=== PATIENT | female | born 1980 | race Caucasian/White ===

== ENCOUNTER → 2016-06-23 | Outpatient (CLI) | payer SELFPAY ==
--- OUTSIDE RECORDS SUMMARY | 2016-06-23 16:13 | XMS REPORT ---
Author Author ZEINA RUBIO Organization [employer] Address Unknown Phone Unavailable Care Team Providers Care Stock Turner Name Role Phone ZEINA RUBIO CP Unavailable Allergies No Known Allergies Problems Problem Type Condition Code Onset Dates Condition Status Problem Pain in soft tissues of limb M79.609 Active Problem Abnormal weight gain R63.5 Active Problem Obesity E66.9 Active Assessment Encounter for immunization Z23 Active Problem Health examination in population survey Z00.8 Active Problem Irregular menses N92.6 Active Problem Desire for Z31.9 Active Problem Heavy menstrual bleeding N92.0 Active Problem Malaise R53.81 Active Problem Other fatigue R53.83 Active 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
--- NOTE | 2016-06-23 16:51 | Diagnostic Imaging Report ---
US NON OB PELVIS COMP/TRANSVAG INDICATION: Heavy menstrual bleeding, dysmenorrhea. TECHNIQUE: Transabdominal and transvaginal grayscale, color Doppler and pulse duplex imaging of the pelvis was performed. FINDINGS: The uterus measures 8.3 x 5.1 x 6.0 cm. The myometrium is normal in echogenicity without discrete mass. The endometrium measures up to 1.1 cm where visualized, and has a normal trilaminar appearance, compatible with late proliferative phase of the menstrual cycle. The right ovary measures 2.5 x 1.6 x 1.8 cm. The left ovary measures 2.9 x 2.7 x 1.9 cm. Both ovaries have physiologic in appearance, with a dominant follicle in the left ovary measuring 2.2 x 1.5 x 1.9 cm. Blood flow is seen in both ovaries by color Doppler and spectral duplex imaging. No suspicious adnexal mass or fluid collection. No free pelvic fluid. IMPRESSION: Normal pelvic ultrasound. Endometrium measures up to 1.1 cm in thickness and has a normal appearance for the late proliferative phase of menstrual cycle. Dictated by: Dictated on workstation # [id number]
== END ==
LOC: RAD 16:10
PROVIDERS: ATTEND Nurse Practitioner Family
DX: N94.6 Dysmenorrhea, unspecified (principal)
CPT/HCPCS: 76830; 76856

== ENCOUNTER 2018-10-07 14:48 | Emergency (ER) | payer MEDICAID, OTHER ==
[~2018-10-07] VITALS: Ht 162.6 cm; Wt 108.0 kg
[2018-10-07] MEDS ORDERED: NS IV 1000 ML 1,000 ML IV STA (15:25)
[2018-10-07] MEDS ORDERED: DIAZEPAM INJ 10 MG/2 ML (VALIUM) SYR IV STA (15:25)
[2018-10-07] MEDS ORDERED: IOHEXOL 350 MG/ML 100 ML (OMNIPAQUE 350) VIAL IV ONE (15:30)
[2018-10-07] MEDS ORDERED: HOLD METFORMIN - RECEIVED CONTRAST 20 ML VIAL IV SCH (15:30)
--- NOTE | 2018-10-07 15:35 | ED General ---
General Chief Complaint: Dizziness/Syncope Stated Complaint: FALL/ NAUSEA VOMITING Nursing Triage Note: Was jumping on trampoline and fell backwards onto trampoline. Afterwards started feeling dizzy, nauseous, and shaky. Vomited x2. Denies hitting head or losing consciousness. Nursing Sepsis Screen: No Definite Risk (SHILA OLSON DO) History of Present Illness Date Seen by Provider: Oct 07, 2018 Time Seen by Provider: 15:10 This is a 37-year-old female who complains of sensation of spinning, nausea, vomiting after a mechanical fall on a trampoline about an hour ago. She was jumping on the trampoline and felt fine, she fell backwards onto the trampoline , she does not think she her head or neck or anything else. She feels that the spinning sensation is worse when she turns her head to the right side. No visual change, focal weakness, numbness, or tingling, or hearing loss. No chest pain or shortness of breath. (SHILA OLSON DO) Allergies and Home Medications Allergies Coded Allergies: No Known Drug Allergies (Unverified , 10/07/18) Patient Home Medication List Home Medication List Reviewed: Yes (SHILA OLSON DO) Review of Systems Review of Systems Constitutional: no symptoms reported EENTM: no symptoms reported Respiratory: no symptoms reported Cardiovascular: no symptoms reported Gastrointestinal: see HPI Genitourinary: no symptoms reported Musculoskeletal: no symptoms reported Skin: no symptoms reported Psychiatric/Neurological: See HPI Hematologic/Lymphatic: No Symptoms Reported Immunological/Allergic: no symptoms reported (SHILA OLSON DO) Past Bserroy-Gofvxz-Hjuyfr Hx Past Med/Social Hx: Reviewed Nursing Past Med/Soc Hx (SHILA OLSON DO) Patient Social History Alcohol Use: Denies Use Recreational Drug Use: No Smoking Status: Never a Smoker 2nd Hand Smoke Exposure: No Recent Foreign Travel: No Contact w/Someone Who Travel: No Recent Infectious Disease Expo: No Recent Hopitalizations: No Physical Abuse: No Sexual Abuse: No Mistreated: No Fear: No (SHILA OLSON DO) Seasonal Allergies Seasonal Allergies: No (SHILA OLSON DO) Past Medical History Surgeries: Yes Section, Hysterectomy Respiratory: No Cardiac: No Neurological: No Genitourinary: No Gastrointestinal: No Musculoskeletal: No Endocrine: No HEENT: No Cancer: No Psychosocial: No Integumentary: No (SHILA OLSON DO) Physical Exam Vital Signs Vital Signs - First Documented 10/07/18 14:55 Temp 96.9 Pulse 86 B/P (MAP) 124/70 (88) Pulse Ox 97 (KATE JORDAN MD) Vital Signs Capillary Refill : Less Than 3 Seconds (SHILA OLSON DO) Height, Weight, BMI Height: 5'4.00" Weight: 238lbs. oz. 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 Question subtle rotatory nystagmus with eyes turned to the right. No vertical nystagmus. On Anya-Hallpike testing patient is mildly to moderately symptomatic with the head turned to the right, not symptomatic with the head turned to the left.) Skin: Warm/Dry (SHILA OLSON DO) Progress/Results/Core Measures Suspected Sepsis Recent Fever Within 48 Hours: No Infection Criteria Present: None New/Unexplained Altered Menta: No Sepsis Screen: No Definite Risk SIRS Temperature:96.9 Pulse: 86 Respiratory Rate: Laboratory Tests 10/07/18 15:45: White Blood Count 11.4H Blood Pressure 124 /70 Mean: 88 Laboratory Tests 10/07/18 15:45: Creatinine 0.61, Platelet Count 268 (SHILA OLSON DO) Results/Orders Lab Results Laboratory Tests Test 10/07/18 15:45 Range/Units White Blood Count 11.4 H 4.3-11.0 10^3/uL Red Blood Count 4.71 4.35-5.85 10^6/uL Hemoglobin 13.5 11.5-16.0 G/DL Hematocrit 41 35-52 % Mean Corpuscular Volume 87 80-99 FL Mean Corpuscular Hemoglobin 29 25-34 PG Mean Corpuscular Hemoglobin Concent 33 32-36 G/DL Red Cell Distribution Width 14.2 10.0-14.5 % Platelet Count 268 130-400 10^3/uL Mean Platelet Volume 10.4 7.4-10.4 FL Sodium Level 137 135-145 MMOL/L Potassium Level 4.1 3.6-5.0 MMOL/L Chloride Level 99 98-107 MMOL/L Carbon Dioxide Level 17 L 21-32 MMOL/L Anion Gap 21 H 5-14 MMOL/L Blood Urea Nitrogen 11 7-18 MG/DL Creatinine 0.61 0.60-1.30 MG/DL Estimat Glomerular Filtration Rate > 60 BUN/Creatinine Ratio 18 Glucose Level 102 70-105 MG/DL Calcium Level 9.8 8.5-10.1 MG/DL Serum Test, Qualitative NEGATIVE NEGATIVE (KATE JORDAN MD) My Orders Orders - KATE JORDAN MD Ct Angio Neck W (10/07/18 ) (KATE JORDAN MD) Medications Given in ED Current Medications Medications Dose Ordered Sig/Nita Route Start Time Stop Time Status Last Admin Dose Admin Iohexol 75 ml ONCE ONCE IV 10/07/18 15:30 10/07/18 15:31 DC 10/07/18 16:39 75 ML Ondansetron HCl 8 mg ONCE ONCE IVP 10/07/18 15:30 10/07/18 15:31 DC 10/07/18 16:01 4 MG (KATE JORDAN MD) Vital Signs/I&O 10/07/18 14:55 Temp 96.9 Pulse 86 B/P (MAP) 124/70 (88) Pulse Ox 97 (KATE JORDAN MD) Vital Signs/I&O Capillary Refill : Less Than 3 Seconds (SHILA OLSON DO) Blood Pressure Mean: 88 Progress Note #1: Progress Note This is a 37-year-old female who fell backwards on a trampoline and has been having vertiginous symptoms since then, worse when turning to the right. She does not have a headache or neck pain, she has an objectively normal neurologic exam with equivocal results on Anya-Hallpike testing with the head turned to the right. A vertebral artery dissection seems somewhat unlikely but in the setting of the fall I feel it is reasonable to rule this out with a CT angiogram. Patient is in agreement. We'll also screen with an ECG, basic labs, hCG. We will treat with diazepam, Zofran, fluids. We will reassess. Progress Note #2: Progress Note Repeat CTA pending at shift change. Plan to dc home w meclizine and zofran if no dissection or other acute issue. (SHILA OLSON DO) Progress Note : Time: 18:00 Progress Note I assumed care of the patient at 1800. I discussed the situation with Dr. Olson and with the patient and her . She is feeling better. Awaiting repeat angiography studies CT study. Patient understands and agrees with plan. 1914 CT angiography reveals no evidence of dissection in either the neck or head. Discussed with patient and her . We'll treat symptomatically with meclizine and Zofran per Dr. Olson's plan (KATE JORDAN MD) Diagnostic Imaging Diagonstic Imaging: CT Plain Films/CT/US/NM/MRI: head, other (neck) Comments CT angiogram of the head and neck reveal no evidence of dissection or other abnormality. Per radiology report. (KATE JORDAN MD) Departure Impression Primary Impression: Vertigo Additional Impressions: Fall Qualified Codes: W19.XXXA - Unspecified fall, initial encounter Vomiting Qualified Codes: R11.2 - Nausea with vomiting, unspecified Disposition: 01 HOME, SELF-CARE Condition: Improved Departure-Patient Inst. Decision time for Depature: 19:22 (KATE JORDAN MD) Referrals: FAISAL DUTTON MD (PCP/Family) Primary Care Physician 2-3 days, sooner as needed Patient Instructions: Vertigo (a Type of Dizziness) (DC), Nausea and Vomiting, Adult (DC) Scripts Ondansetron (Ondansetron Odt) 4 Mg Tab.rapdis 4 MG PO Q6H PRN for NAUSEA/VOMITING-1ST LINE, #10 TAB Prov: KATE JORDAN MD 10/07/18 Meclizine HCl (Meclizine HCl) 25 Mg Tablet 25 MG PO QID PRN for DIZZINESS, #10 TAB Prov: KATE JORDAN MD 10/07/18 SHILA OLSON DO Oct 07, 2018 15:35 KATE JORDAN MD Oct 07, 2018 19:22
[2018-10-07] MEDS ORDERED: LORazepam INJ 2 MG/ML (ATIVAN) VIAL ONE (15:56)
[2018-10-07] MEDS ORDERED: LORazepam INJ 2 MG/ML (ATIVAN) VIAL IVP STA (15:56)
[2018-10-07] MEDS: ONDANSETRON 4 MG/2 ML (SDV) Z0FRAN IVP ONE (16:01)
[2018-10-07 16:07] LABS: HEMOGLOBIN 13.5 G/DL (11.5-16.0); MEAN PLATELET VOLUME 10.4 FL (7.4-10.4); RED CELL DISTRIBUTION WIDTH 14.2 % (10.0-14.5); WHITE BLOOD COUNT 11.4 10^3/uL (4.3-11.0)
[2018-10-07 16:25] LABS: BUN/CREATININE RATIO 18; CALCIUM 9.8 MG/DL (8.5-10.1); CARBON DIOXIDE 17 MMOL/L (21-32); CHLORIDE 99 MMOL/L (98-107); CREATININE SERUM 0.61 MG/DL (0.60-1.30); GFR ESTIMATED > 60; GLUCOSE 102 MG/DL (70-105); POTASSIUM 4.1 MMOL/L (3.6-5.0); SODIUM 137 MMOL/L (135-145)
--- NOTE | 2018-10-07 17:04 | Diagnostic Imaging Report ---
PROCEDURE: CT angiography of the head and CT angiography of the neck with and without contrast. TECHNIQUE: Contiguous noncontrast images were obtained from the skull base through the vertex. After intravenous contrast administration, helical CT angiography of the neck was performed. Source data was reformatted into multiple MIP projections. Delayed post contrast acquisition was also obtained. Auto Exposure Controls were utilized during the CT exam to meet ALARA standards for radiation dose reduction. INDICATION: Dizziness. Fall on trampoline. COMPARISON: None. FINDINGS: Noncontrast head CT demonstrates no intracranial hemorrhage, mass effect, hydrocephalus or extra-axial fluid collections. No CT evidence of a territorial infarction. Osseous structures are intact. The visualized paranasal sinuses and mastoids are clear. CTA is markedly limited by contrast timing. No high-grade narrowing, aneurysm or dissection is seen involving the bilateral carotid circulations, middle cerebral, posterior cerebral or anterior cerebral arteries. The dural venous sinuses are grossly patent. The vertebral arteries are not well evaluated. 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 Mild degenerative endplate changes in the cervical spine. Vertebral body heights are preserved. No fractures. No evidence of high-grade spinal canal narrowing. The visualized paravertebral soft tissues are unremarkable. IMPRESSION: 1. No acute intracranial CT findings. No acute CT findings in the cervical spine. 2. CTA is limited by contrast timing. The vertebral arteries are not well evaluated. If there is concern for a vertebral artery injury, recommend repeat examination. Dictated by: Dictated on workstation # [id number]
--- NOTE | 2018-10-07 19:03 | Diagnostic Imaging Report ---
CTA neck: After intravenous administration of contrast, axial imaging was obtained through the neck and reformatted into coronal and sagittal planes. Findings: The CT angiogram portion of the neck was repeated. The head CT and post-contrast images of the head were not repeated. The CT angiogram demonstrates patent origins of the great vessels arising from the aortic arch. The common carotid arteries are unremarkable. There is no significant stenosis at the carotid bifurcations. The cervical segments of the internal carotid arteries demonstrate no caliber change to suggest stenosis or dissection. The origin of the right vertebral artery appears patent. This remains extravertebral until the level of the C3-4. It remains normal in caliber beyond this point. There is no caliber change to suggest dissection. The cervical segments of the dominant left vertebral artery are unremarkable. The intracranial portion of the right vertebral artery is patent. The left vertebral artery is also patent intracranially, and the basilar is unremarkable with patent superior cerebellar arteries. The right [employer]Y MANAGER appears patent. The left P1 segment is hypoplastic as there appears to be a origin of the left [employer] PARTY MANAGER. The visualized portion of the anterior intracranial circulation appears intact. The dural venous sinuses appear patent. IMPRESSION: 1. The repeated CTA of the neck demonstrates no CT angiographic evidence to suggest vertebral artery dissection or traumatic injury. The carotid system within the neck also appears intact and unremarkable. The visualized intracranial circulation appears intact. Dictated by: Dictated on workstation # [id number]
[2018-10-07] MEDS ORDERED: MECL-106 PO (19:25)
[2018-10-07] MEDS ORDERED: ONDA4TAB11 PO (19:25)
[2018-10-07] MEDS ORDERED: RX-ONDANSETRON 4 MG ODT (ZOFRAN) PPK #4 PO ONE (19:30)
[2018-10-07 19:41] VITALS: BP 122/80
== END 2018-10-07 19:41 | disposition home or self-care (01) ==
LOC: EDUNIT# 14:48 → ER FS 14:51
DX: R42 Dizziness and giddiness (principal); R11.2 Nausea with vomiting, unspecified; Z98.890 Other specified postprocedural states; Z90.710 Acquired absence of both cervix and uterus; W09.8XXA Fall on or from other playground equipment, initial encounter; Y93.44 Activity, trampolining
CPT/HCPCS: 36415; 70496; 70498; 80048; 84703; 85027; 93005

== ENCOUNTER → 2022-01-20 | Outpatient (CLI) | payer BC, MEDICAID ==
[~2022-01-20] MED LIST: MECL-149 PO; ONDA4TAB11 PO
--- NOTE | 2022-01-20 15:39 | Diagnostic Imaging Report ---
PROCEDURE: Pelvic comp/transvaginal sonogram. TECHNIQUE: Complete transabdominal and transvaginal pelvic ultrasound was performed. In addition, limited pelvic Doppler was performed. INDICATION: Lower abdominal pain. FINDINGS: The uterus is surgically absent. The right ovary measures 3.2 x 1.4 x 2.0 cm and the left ovary measures 2.9 x 1.7 x 1.5 cm. The ovaries show blood flow. No adnexal mass or free fluid is detected. IMPRESSION: Status post hysterectomy. The study is otherwise unremarkable. Dictated by: Dictated on workstation # [id number]
== END ==
LOC: RAD FS 13:55
PROVIDERS: ATTEND Obstetrics & Gynecology
DX: R10.30 Lower abdominal pain, unspecified (principal); Z90.710 Acquired absence of both cervix and uterus
CPT/HCPCS: 76830; 76856

== ENCOUNTER 2023-04-15 16:04 | Emergency (ER) | payer SELFPAY ==
[~2023-04-15] VITALS: Ht 162 cm; Wt 88.8 kg
[~2023-04-15 16:04] MED LIST changes: -MECL-149 PO; +MECL-291 PO
--- NOTE | 2023-04-15 16:15 | ED Abdominal Pain ---
General Stated Complaint: RT SIDE ABD PAIN History of Present Illness Date Seen by Provider: Apr 15, 2023 Time Seen by Provider: 16:13 Initial Comments 42-year-old female presents with right-sided abdominal pain this been going on for couple days. Patient reports she presented to urgent care and had a UA checked and had a little bit of blood reports nothing else however it was a dipped urine. Patient reports the pain gets worse with movement. She still has her appendix. She does have her gallbladder out and has had weight loss surgery 5 C-sections. Allergies and Home Medications Allergies Coded Allergies: No Known Drug Allergies (Unverified , 10/07/18) Patient Home Medication List Home Medication List Reviewed: Yes Meclizine HCl (Meclizine HCl) 25 Mg Tablet, 25 MG PO QID PRN for DIZZINESS Prescribed by: KATE JORDAN on 10/07/181924 Ondansetron (Ondansetron Odt) 4 Mg Tab.rapdis, 4 MG PO Q6H PRN for NAUSEA/VOMITING-1ST LINE Prescribed by: KATE JORDAN on 10/07/181924 Review of Systems Review of Systems Constitutional: No chills, No fever Gastrointestinal: Abdominal Pain; Denies Diarrhea, Denies Vomiting Genitourinary: No Symptoms Reported Musculoskeletal: no symptoms reported Skin: no symptoms reported Psychiatric/Neurological: No Symptoms Reported Endocrine: No Symptoms Reported Past Xmewalm-Udsqqv-Tcbaiv Hx Seasonal Allergies Seasonal Allergies: No Past Medical History Surgeries: Yes Section, Hysterectomy Respiratory: No Cardiac: No Neurological: No Genitourinary: No Gastrointestinal: No Musculoskeletal: No Endocrine: No HEENT: No Cancer: No Psychosocial: No Integumentary: No Physical Exam Vital Signs Vital Signs - First Documented 04/15/23 16:09 Temp 36.9 Pulse 87 Resp 18 B/P (MAP) 145/79 (101) Pulse Ox 100 O2 Delivery Room Air Capillary Refill : Height/Weight/BMI Height: 5'4.00" Weight: 238lbs. oz. 107.138112yu; BMI Method:Stated General Appearance: no apparent distress Respiratory: lungs clear, normal breath sounds Gastrointestinal: soft, tenderness (lower abd, greatest rlq) Extremities: normal range of motion, non-tender Neurologic/Psychiatric: alert, normal mood/affect, oriented x 3 Skin: normal color, warm/dry Progress/Results/Core Measures Results/Orders Lab Results Laboratory Tests Test 04/15/23 16:15 Range/Units White Blood Count 9.1 4.3-11.0 10^3/uL Red Blood Count 4.38 3.80-5.11 10^6/uL Hemoglobin 13.5 11.5-16.0 g/dL Hematocrit 41 35-52 % Mean Corpuscular Volume 94 80-99 fL Mean Corpuscular Hemoglobin 31 25-34 pg Mean Corpuscular Hemoglobin Concent 33 32-36 g/dL Red Cell Distribution Width 12.8 10.0-14.5 % Platelet Count 235 130-400 10^3/uL Mean Platelet Volume 10.0 9.0-12.2 fL Immature Granulocyte % (Auto) 0 % Neutrophils (%) (Auto) 59 42-75 % Lymphocytes (%) (Auto) 31 12-44 % Monocytes (%) (Auto) 8 0-12 % Eosinophils (%) (Auto) 1 0-10 % Basophils (%) (Auto) 1 0-10 % Neutrophils # (Auto) 5.4 1.8-7.8 10^3/uL Lymphocytes # (Auto) 2.8 1.0-4.0 10^3/uL Monocytes # (Auto) 0.8 0.0-1.0 10^3/uL Eosinophils # (Auto) 0.1 0.0-0.3 10^3/uL Basophils # (Auto) 0.1 0.0-0.1 10^3/uL Immature Granulocyte # (Auto) 0.0 0.0-0.1 10^3/uL Urine Color YELLOW Urine Clarity CLEAR Urine pH 6.0 5-9 Urine Specific [place] 1.020 1.016-1.022 Urine Protein NEGATIVE NEGATIVE Urine Glucose (UA) NEGATIVE NEGATIVE Urine Ketones NEGATIVE NEGATIVE Urine Nitrite NEGATIVE NEGATIVE Urine Bilirubin NEGATIVE NEGATIVE Urine Urobilinogen 0.2 < = 1.0 MG/DL Urine Leukocyte Esterase NEGATIVE NEGATIVE Urine RBC (Auto) 1+ H NEGATIVE Urine RBC 5-10 H /HPF Urine WBC 2-5 /HPF Urine Squamous Epithelial Cells >50 H /HPF Urine Crystals NONE /LPF Urine Bacteria LARGE H /HPF Urine Casts NONE /LPF Urine Mucus NEGATIVE /LPF Urine Culture Indicated NO Sodium Level 140 135-145 MMOL/L Potassium Level 3.7 3.6-5.0 MMOL/L Chloride Level 105 98-107 MMOL/L Carbon Dioxide Level 25 21-32 MMOL/L Anion Gap 10 5-14 MMOL/L Blood Urea Nitrogen 11 7-18 MG/DL Creatinine 0.65 0.60-1.30 MG/DL Estimat Glomerular Filtration Rate 113 BUN/Creatinine Ratio 17 Glucose Level 92 70-105 MG/DL Calcium Level 9.4 8.5-10.1 MG/DL Corrected Calcium 9.0 8.5-10.1 MG/DL Total Bilirubin 0.7 0.1-1.0 MG/DL Aspartate Amino Transf (AST/SGOT) 19 5-34 U/L Alanine Aminotransferase (ALT/SGPT) 18 0-55 U/L Alkaline Phosphatase 74 40-136 U/L C-Reactive Protein < 0.30 <0.50 MG/DL Total Protein 7.6 6.4-8.2 GM/DL Albumin 4.5 3.2-4.5 GM/DL My Orders Orders - CALHOUN,BIJAN L DO Cbc And Automated Diff (04/15/23 16:12) Comprehensive Metabolic Panel (04/15/23 16:12) Ua Culture If Indicated (04/15/23 16:12) Crp Fs (04/15/23 16:12) Ct Abdomen/Pelvis Wo (04/15/23 16:37) Vital Signs/I&O 04/15/23 16:09 Temp 36.9 Pulse 87 Resp 18 B/P (MAP) 145/79 (101) Pulse Ox 100 O2 Delivery Room Air Progress Progress Note : Progress Note Patient had very minimal tenderness with no rebound or concerning findings on abdominal exam. Patient's diagnostic studies were ordered, reviewed and interpreted by me. She has a very mild hematuria. I did obtain a CT abdomen pelvis to check for potential kidney stone based on her pain. There was finding of some acute sigmoid diverticulitis that was uncomplicated. Patient does not really have any indications for antibiotic treatment since it is uncomplicated and very mild. I will have her do clear liquid diet for 24 to 36 hours and advance as tolerated with some a few tramadol for pain control. Along with some Zofran for any nausea that develops. Patient was stable and discharged home. She should follow-up with her primary care provider for recheck of her symptoms next week. Diagnostic Imaging Diagonstic Imaging: CT Plain Films/CT/US/NM/MRI: abdomen, pelvis Comments Date of Exam:04/15/23 CT ABDOMEN/PELVIS WO PROCEDURE: CT abdomen and pelvis without contrast. TECHNIQUE: Multiple contiguous axial images were obtained through the abdomen and pelvis without the use of intravenous contrast. Auto Exposure Controls were utilized during the CT exam to meet ALARA standards for radiation dose reduction. INDICATION: Right lower quadrant pain. Hematuria. COMPARISON: None. FINDINGS: Lung bases are clear. Postoperative changes in the stomach. Cholecystectomy. Small fat-containing umbilical hernia with no stranding or fluid collections. The liver, pancreas, spleen, adrenals, kidneys, collecting systems and bladder are negative on this noncontrast exam. Normal appendix. Hysterectomy. No free intraperitoneal air or fluid. No lymphadenopathy. Mild colonic diverticulosis. There is focal bowel wall thickening and mild adjacent inflammatory change in the sigmoid colon. No evidence of abscess or perforation. No evidence of bowel obstruction. No acute osseous findings. IMPRESSION: CT findings consistent with acute uncomplicated diverticulitis in the sigmoid colon. No evidence of perforation or abscess formation. Reviewed: Reviewed by Me, Reviewed/Discussed Departure Impression Primary Impression: Sigmoid diverticulitis Disposition: 01 HOME, SELF-CARE Condition: Stable Departure-Patient Inst. Referrals: FAISAL DUTTON MD (PCP/Family) Primary Care Physician Patient Instructions: CLEAR LIQUID DIET ADULT/CHILD, Diverticulitis Add. Discharge Instructions: Clear liquid diet for the next 36 hours then advance as tolerated. Follow-up with your primary care provider next week for recheck of your symptoms. Return to the ER with any concerns. Scripts Tramadol HCl (Tramadol HCl) 50 Mg Tablet 50 MG PO Q8H PRN for PAIN, #6 TAB 0 Refills Prov: BIJAN CALHOUN DO 04/15/23 Ondansetron (Ondansetron Odt) 4 Mg Tab.rapdis 4 MG PO Q6H PRN for NAUSEA/VOMITING, #20 TAB 0 Refills Prov: BIJAN CALHOUN DO 04/15/23 BIJAN CALHOUN DO Apr 15, 2023 16:15
[2023-04-15 16:19] LABS: BASOPHILS # (AUTO) 0.1 10^3/uL (0.0-0.1); BASOPHILS % (AUTO) 1 % (0-10); EOSINOPHILS # (AUTO) 0.1 10^3/uL (0.0-0.3); EOSINOPHILS % (AUTO) 1 % (0-10); HEMATOCRIT 41 % (35-52); HEMOGLOBIN 13.5 g/dL (11.5-16.0); LYMPHOCYTES # (AUTO) 2.8 10^3/uL (1.0-4.0); LYMPHOCYTES % (AUTO) 31 % (12-44); MEAN CORPUSCULAR HEMOGLOBIN 31 pg (25-34); MEAN CORPUSCULAR HGB CONC 33 g/dL (32-36); MEAN CORPUSCULAR VOLUME 94 fL (80-99); MONOCYTES # (AUTO) 0.8 10^3/uL (0.0-1.0); MONOCYTES % (AUTO) 8 % (0-12); NEUTROPHILS # (AUTO) 5.4 10^3/uL (1.8-7.8); NEUTROPHILS % (AUTO) 59 % (42-75); PLATELET COUNT 235 10^3/uL (130-400); WHITE BLOOD COUNT 9.1 10^3/uL (4.3-11.0)
[2023-04-15 16:22] LABS: BILIRUBIN,URINE NEGATIVE (NEGATIVE); CLARITY,URINE CLEAR; COLOR,URINE YELLOW; GLUCOSE, URINE (UA) NEGATIVE (NEGATIVE); KETONES,URINE NEGATIVE (NEGATIVE); LEUKOCYTE ESTERASE ,URINE NEGATIVE (NEGATIVE); NITRITE,URINE NEGATIVE (NEGATIVE); PROTEIN,URINE NEGATIVE (NEGATIVE)
[2023-04-15 16:26] LABS: BACTERIA,URINE LARGE /HPF; SQUAMOUS EPITHELIAL CELL,UR >50 /HPF
[2023-04-15 16:35] LABS: BILIRUBIN,TOTAL 0.7 MG/DL (0.1-1.0); CALCIUM 9.4 MG/DL (8.5-10.1); CARBON DIOXIDE 25 MMOL/L (21-32); CHLORIDE 105 MMOL/L (98-107); POTASSIUM 3.7 MMOL/L (3.6-5.0); SODIUM 140 MMOL/L (135-145); TOTAL PROTEIN 7.6 GM/DL (6.4-8.2)
[2023-04-15 16:43] LABS: ALANINE AMINOTRANSFERASE 18 U/L (0-55); ALBUMIN 4.5 GM/DL (3.2-4.5); ALKALINE PHOSPHATASE 74 U/L (40-136); BUN/CREATININE RATIO 17; CREATININE SERUM 0.65 MG/DL (0.60-1.30); GFR ESTIMATED 113; GLUCOSE 92 MG/DL (70-105)
--- NOTE | 2023-04-15 17:06 | Diagnostic Imaging Report ---
PROCEDURE: CT abdomen and pelvis without contrast. TECHNIQUE: Multiple contiguous axial images were obtained through the abdomen and pelvis without the use of intravenous contrast. Auto Exposure Controls were utilized during the CT exam to meet ALARA standards for radiation dose reduction. INDICATION: Right lower quadrant pain. Hematuria. COMPARISON: None. FINDINGS: Lung bases are clear. Postoperative changes in the stomach. Cholecystectomy. Small fat-containing umbilical hernia with no stranding or fluid collections. The liver, pancreas, spleen, adrenals, kidneys, collecting systems and bladder are negative on this noncontrast exam. Normal appendix. Hysterectomy. No free intraperitoneal air or fluid. No lymphadenopathy. Mild colonic diverticulosis. There is focal bowel wall thickening and mild adjacent inflammatory change in the sigmoid colon. No evidence of abscess or perforation. No evidence of bowel obstruction. No acute osseous findings. IMPRESSION: CT findings consistent with acute uncomplicated diverticulitis in the sigmoid colon. No evidence of perforation or abscess formation. Dictated by: Dictated on workstation # [id number]
[2023-04-15] MEDS ORDERED: TRM50T PO (17:20)
[2023-04-15] MEDS ORDERED: ONDA4TAB11 PO (17:20)
[2023-04-15 17:28] VITALS: BP 110/61
== END 2023-04-15 17:28 | disposition home or self-care (01) ==
LOC: EDUNIT# 16:04 → ER FS 16:07
DX: K57.32 Diverticulitis of large intestine without perforation or abscess without bleeding (principal)
CPT/HCPCS: 36415; 74176; 80053; 81000; 85025; 86141